=== PATIENT | female | born 1995 | race American Indian/Alaskan Native ===

== ENCOUNTER 2018-07-30 21:05 | Emergency (ER) | payer MEDICAID ==
[2018-07-30] MEDS ORDERED: TYLENOL PO ONE (21:58)
[2018-07-30] MEDS ORDERED: TYLENOL ONE (22:00)
[2018-07-30 22:24] LABS: Bacteria,Urine 2+ /HPF (Negative); Bilirubin,Urine NEG (Negative); Blood,Urine NEG (Negative); Color,Urine Amber (Yellow); Hyaline Casts,Urine 7 /LPF; Mucus,Urine 3+ /HPF
[2018-07-30 22:27] LABS: HCG Qualitative,Urine Negative (Negative)
[2018-07-31] MEDS ORDERED: PYRIDIUM PO ONE (00:42)
[2018-07-31] MEDS ORDERED: BACTRIM DS PO ONE (00:42)
[2018-07-31] MEDS ORDERED: NACL 0.9% 1000 ML 1,000 ML IV ONE (00:45)
[2018-07-31] MEDS ORDERED: ROCEPHIN/NS 1 GM/50 ML 1 GM/50 ML BAG IV ONE (00:45)
[2018-07-31] MEDS ORDERED: NACL 0.9% 1000 ML 1,000 ML ONE (00:48)
[2018-07-31 00:50] VITALS: BP 103/57
[2018-07-31] MEDS ORDERED: XYLOCAINE 1% MPF 5 mL INFILTRATI ONE (00:50)
[2018-07-31] MEDS ORDERED: ROCEPHIN IM ONE ×2 (00:50→00:54)
[2018-07-31] MEDS ORDERED: XYLOCAINE 1% MPF 5 mL ONE (00:54)
--- NOTE | 2018-07-31 01:11 | Emergency Department Report ---
ED Female HPI - General Chief complaint: Abdominal Pain Stated complaint: ABD PAIN Time Seen by Provider: 07/31/18 00:17 Source: patient Mode of arrival: Ambulatory Limitations: No Limitations - History of Present Illness Initial comments: pt is a 23 y/o aaf who presents for superpubic pain dysuria frequency and urgency x 4 days pt denies fever no chills no n/v there is no vaginal discharge no LMP 1 week ago, symptoms are relieved by nothing , symptoms are exacerbated by voiding, as stinging, strong smelling, Complaint: dysuria Onset/Timin -: days(s) Radiation: suprapubic Severity: moderate Severity scale (0 -10): 4 Quality: cramping, other (stinging) Consistency: intermittent Improves with: none Worsens with: urination Are you Now?: No Last Menstrual Period: 07/23/18 EDC: 04/29/19 Associated Symptoms: abdominal pain - Related Data Sexually active: Yes : 1 Para: 1 A: 0 Previous Rx's Medication Instructions Recorded Last Taken Type Ibuprofen 800 mg PO TID PRN #30 tablet 07/31/18 Unknown Rx Phenazopyridine [Pyridium] 100 mg PO TID 2 Days #6 tab 07/31/18 Unknown Rx Sulfamethoxazole/Trimethoprim 1 each PO BID 10 Days #20 tablet 07/31/18 Unknown Rx [Bactrim DS TAB] Allergies Allergy/AdvReac Type Severity Reaction Status Date / Time No Known Allergies Allergy Unverified 07/30/18 21:07 ED Review of Systems ROS: Stated complaint: ABD PAIN Other details as noted in HPI Constitutional: denies: chills, fever Eyes: denies: eye pain, eye discharge, vision change ENT: denies: ear pain, throat pain Respiratory: denies: cough, shortness of breath, wheezing Cardiovascular: denies: chest pain, palpitations Endocrine: no symptoms reported Gastrointestinal: abdominal pain. denies: nausea, vomiting, diarrhea Genitourinary: urgency, dysuria, frequency. denies: hematuria, discharge Musculoskeletal: denies: back pain, joint swelling, arthralgia Skin: denies: rash, lesions Neurological: denies: headache, weakness, paresthesias Psychiatric: denies: anxiety, depression Hematological/Lymphatic: denies: easy bleeding, easy bruising ED Past Medical Hx - Past Medical History Previous Medical History?: No - Surgical History Past Surgical History?: No - Social History Smoking Status: Never Smoker Substance Use Type: None - Medications Home Medications: Home Medications Medication Instructions Recorded Confirmed Last Taken Type Ibuprofen 800 mg PO TID PRN #30 tablet 07/31/18 Unknown Rx Phenazopyridine [Pyridium] 100 mg PO TID 2 Days #6 tab 07/31/18 Unknown Rx Sulfamethoxazole/Trimethoprim 1 each PO BID 10 Days #20 tablet 07/31/18 Unknown Rx [Bactrim DS TAB] ED Physical Exam - General Limitations: No Limitations General appearance: alert, in no apparent distress - Head Head exam: Present: atraumatic, normocephalic - Eye Eye exam: Present: normal appearance - ENT ENT exam: Present: mucous membranes moist - Neck Neck exam: Present: normal inspection - Respiratory Respiratory exam: Present: normal lung sounds bilaterally. Absent: respiratory distress - Cardiovascular Cardiovascular Exam: Present: regular rate, normal rhythm. Absent: systolic murmur, diastolic murmur, rubs, gallop - GI/Abdominal GI/Abdominal exam: Present: soft, normal bowel sounds. Absent: distended, tenderness, guarding, rebound, rigid, bruit, hernia - Rectal Rectal exam: Present: deferred - Extremities Exam Extremities exam: Present: normal inspection, full ROM, normal capillary refill. Absent: tenderness, pedal edema, joint swelling, calf tenderness - Back Exam Back exam: Present: normal inspection, full ROM. Absent: tenderness, CVA tenderness (R), CVA tenderness (L), muscle spasm, rash noted - Neurological Exam Neurological exam: Present: alert, oriented X3, CN II-XII intact, normal gait - Psychiatric Psychiatric exam: Present: normal affect, normal mood - Skin Skin exam: Present: warm, dry, intact, normal color. Absent: rash ED Course Vital Signs 07/31/18 00:49 Temperature 97.6 F Pulse Rate 136 H Respiratory 16 Rate Blood Pressure 103/57 [Left] O2 Sat by Pulse 98 Oximetry ED Medical Decision Making - Lab Data Labs 07/30/18 22:05 Urine Color Verenice Urine Turbidity Cloudy Urine pH 5.0 Ur Specific Wilder 1.030 Urine Protein 100 mg/dl Urine Glucose (UA) 50 Urine Ketones Tr Urine Blood Neg Urine Nitrite Neg Urine Bilirubin Neg Urine Urobilinogen 2.0 Ur Leukocyte Esterase Tr Urine WBC (Auto) 43.0 H Urine RBC (Auto) 16.0 U Epithel Cells (Auto) 7.0 Urine Bacteria (Auto) 2+ Hyaline Casts 7 Urine Mucus 3+ Urine HCG, Qual Negative - Medical Decision Making repeat vital signs, hr noted 136 bpm, bp: 103/57, I have orded IV NS hydration and Rocephin 1gm ivpb, however pt and family member refuses iv and ivfs, advises that she will po hydrates as she has no n/v , and does not feel sick, I have counseled pt on importance to return to ed if symptoms do not improve or worsen, I will tx with rocephin 1gm IM x 1, provide Bactrim DS, pt will sign out AMA, I have discussed risk if signing out AMA , and risk of possible pyelonephritis , including sepsis and , I have answered all questions to her satisfaction, pt is currently A/O x 3 demonstrates decision making capacity pt verbalized agreement and understanding of same. Pt signed out AMA at this time. Critical care attestation.: If time is entered above; I have spent that time in minutes in the direct care of this critically ill patient, excluding procedure time. ED Disposition Clinical Impression: UTI (urinary tract infection) Qualifiers: Urinary tract infection type: acute cystitis Hematuria presence: without hematuria Qualified Code(s): N30.00 - Acute cystitis without hematuria Abdominal pain Qualifiers: Abdominal location: generalized Qualified Code(s): R10.84 - Generalized abdominal pain Disposition: LEFT AGAINST MED ADVICE Is pt being admited?: No Does the pt Need Aspirin: No Condition: Undetermined Instructions: Urinary Tract Infection in Women (ED), Abdominal Pain (ED) Prescriptions: Ibuprofen 800 mg PO TID PRN #30 tablet PRN Reason: pain fever Phenazopyridine [Pyridium] 100 mg PO TID 2 Days #6 tab Sulfamethoxazole/Trimethoprim [Bactrim DS TAB] 1 each PO BID 10 Days #20 tablet Referrals: ALEXANDRIA PAUL MD [Primary Care Provider] - 3-5 Days Forms: AMA Form, Work/School Release Form(ED) Time of Disposition: 01:24
== END 2018-07-31 01:00 | disposition left against medical advice (07) ==
LOC: ED 21:05
DX: N39.0 Urinary tract infection, site not specified (principal)
CPT/HCPCS: 81001; 81025; 96372; 99283; J0696; J7030

== ENCOUNTER 2018-08-01 15:57 | Inpatient (IN) | payer MEDICAID ==
--- NOTE | 2018-08-01 16:07 | Emergency Department Report ---
Blank Doc - Documentation Documentation: This is a 23-year-old female that presents with right upper abdominal pain with nausea and vomiting. Patient denies any other complaints or symptoms. This initial assessment diagnostic orders/clinical plan/treatment(s) is/are subject to change based on patient's health status, clinical progression and re- assessment by fellow clinical providers in the ED. Further treatment and workup at subsequent clinical providers discretion. Patient/guardians urged not to elope from ED s their condition may be serious if not clinically assessed and managed. Initial orders include: 1-Patient sent to [facility] for further evaluation and treatment 2- UA 3- Labs
[2018-08-01 17:05] LABS: Hematocrit 42.4 % (30.3-42.9); Hemoglobin 14.6 gm/dl (10.1-14.3); Mean Corpuscular HGB Conc 35 % (30-34); Mean Corpuscular Volume 89 fl (79-97); Platelet Count 160 K/mm3 (140-440); Red Blood Count 4.78 M/mm3 (3.65-5.03); Red Cell Distribution Width 13.2 % (13.2-15.2)
--- NOTE | 2018-08-01 17:19 | Emergency Department Report ---
ED Abdominal Pain HPI - General Chief Complaint: Nausea/Vomiting/Diarrhea Stated Complaint: ABD PAIN ON (R) SIDE Time Seen by Provider: 08/01/18 16:02 Source: patient, family Mode of arrival: Ambulatory Limitations: No Limitations - History of Present Illness Initial Comments: This is a 23-year-old female here with her family reports patient was here and Thursday and diagnosed a UTI and she is on antibiotic and she is still having nausea and vomiting and and have been eaten anything since Thursday and she threw up 4-7 times today. Denies any blood in her vomit. Denies any fever or reports chills and weakness. [id number] reported the patient with learning disability and she is bipolar so he have to speak to her as a simple level for her to understand. She denies any fever but reports chills and her abdominal pain is located to right abdomen and periumbilical area. She had a BM this morning in her significant other. Pain is 10/10 to a abdomen and feels sharp and cramping. MD Complaint: abdominal pain, other (nausea and vomiting) Onset/Timin -: days(s) Location: periumbilical Radiation: none Migration to: RLQ Severity: severe Severity scale (0 -10): 10 Quality: cramping, sharp Consistency: constant Improves With: nothing Worsens With: vomiting Context: recent antibiotic use, other (diagnosis 2 days ago for UTI) Associated Symptoms: nausea, vomiting, chills, anorexia. denies: diarrhea, fever, constipation, dysuria, hematemesis, hematochezia, melena, hematuria, syncope Treatments Prior to Arrival: other (antibiotic, ibuprofen and Pyridium) - Related Data LMP Date: 07/24/18 Previous Rx's Medication Instructions Recorded Last Taken Type Ibuprofen 800 mg PO TID PRN #30 tablet 07/31/18 Unknown Rx Phenazopyridine [Pyridium] 100 mg PO TID 2 Days #6 tab 07/31/18 Unknown Rx Sulfamethoxazole/Trimethoprim 1 each PO BID 10 Days #20 tablet 07/31/18 Unknown Rx [Bactrim DS TAB] Allergies Allergy/AdvReac Type Severity Reaction Status Date / Time No Known Allergies Allergy Unverified 07/30/18 21:07 ED Review of Systems ROS: Stated complaint: ABD PAIN ON (R) SIDE Other details as noted in HPI Constitutional: chills, weakness. denies: fever ENT: denies: throat pain, congestion Respiratory: denies: cough, shortness of breath, wheezing Cardiovascular: denies: chest pain, palpitations, edema, syncope Gastrointestinal: abdominal pain, nausea, vomiting. denies: diarrhea, constipation, hematemesis, hematochezia Genitourinary: denies: urgency, dysuria, frequency, hematuria, discharge, abnormal menses Musculoskeletal: denies: back pain, joint swelling, arthralgia, myalgia Skin: denies: rash Neurological: denies: headache, numbness, paresthesias, abnormal gait, vertigo ED Past Medical Hx - Past Medical History Previous Medical History?: Yes Hx Psychiatric Treatment: Yes (bipolar and learning disorder) - Surgical History Past Surgical History?: No - Family History Family history: no significant - Social History Smoking Status: Never Smoker Substance Use Type: None - Medications Home Medications: Home Medications Medication Instructions Recorded Confirmed Last Taken Type Ibuprofen 800 mg PO TID PRN #30 tablet 07/31/18 Unknown Rx Phenazopyridine [Pyridium] 100 mg PO TID 2 Days #6 tab 07/31/18 Unknown Rx Sulfamethoxazole/Trimethoprim 1 each PO BID 10 Days #20 tablet 07/31/18 Unknown Rx [Bactrim DS TAB] ED Physical Exam - General Limitations: No Limitations General appearance: alert, in no apparent distress - Head Head exam: Present: atraumatic, normocephalic, normal inspection - Eye Eye exam: Present: normal appearance, PERRL, EOMI Pupils: Present: normal accommodation - ENT ENT exam: Present: normal orophraynx, mucous membranes dry, TM's normal bilaterally, normal external ear exam - Neck Neck exam: Present: normal inspection, full ROM. Absent: tenderness, lymphadenopathy - Respiratory Respiratory exam: Present: normal lung sounds bilaterally. Absent: respiratory distress, chest wall tenderness - Cardiovascular Cardiovascular Exam: Present: normal rhythm, tachycardia, normal heart sounds - GI/Abdominal GI/Abdominal exam: Present: soft, tenderness (right umbilical area and also right lower quadrant), guarding, normal bowel sounds. Absent: distended, rebound, rigid, organomegaly, mass, bruit, pulsatile mass, hernia - Extremities Exam Extremities exam: Present: normal inspection, full ROM, normal capillary refill, other (No cce. + 2 pulses in all extremities, no neurovascular compromise). Absent: tenderness, pedal edema, joint swelling, calf tenderness - Back Exam Back exam: Present: normal inspection, full ROM, other (ambulates in the difficulties). Absent: tenderness, CVA tenderness (R), CVA tenderness (L), muscle spasm, paraspinal tenderness, vertebral tenderness, rash noted - Neurological Exam Neurological exam: Present: alert, oriented X3, normal gait - Psychiatric Psychiatric exam: Present: normal affect, normal mood - Skin Skin exam: Present: warm, dry, intact, normal color. Absent: rash ED Course Vital Signs 08/01/18 08/01/18 08/01/18 16:04 19:40 20:34 Temperature 98.1 F Pulse Rate 110 H 93 H Respiratory 16 15 18 Rate Blood Pressure 104/65 Blood Pressure 107/62 [Right] O2 Sat by Pulse 96 100 Oximetry - Reevaluation(s) Reevaluation #1: 08/01/18 19:52 Patient here for nausea vomiting and abdominal pain to her right abdomen. Abdominal exam with tenderness to palpate McBurney's point. CT scan of the abdomen and pelvis with IV contrast ordered, her vital signs are stable and she is to start on IV fluid and antiemetic with IV pain medication. Patient moved to the treatment room. Reevaluation #2: 08/01/18 18:41 Reevaluation #3: 08/01/18 19:30 Patient with abnormal labs. She was started on a second liter of IV fluid. She says she is feeling better and she is able to tolerate liquids. She is in acute renal failure. I will discuss this with attending physician. Reevaluation #4: 08/01/18 19:49 Radiology call to inform the patient with appendicitis. I spoke with Dr. Manuel who is the surgeon on-call. She wants patient to be nothing by mouth which she is already nothing by mouth and to admit to hospital inpatient, patient to receive Zosyn every 6 hours that is renally dosed and I spoke with pharmacist in regards to this and they said they will renally dose her antibiotic. She is also to start an normal saline at 125 mL an hour. This was discussed with patient and family and they voiced understanding. 08/01/18 19:52 Reevaluation #5: 08/01/18 20:51 Dr. Swartz hospitalist saw and admitted patient - Consultations Consultation #1: 08/01/18 19:51 Dr. Manuel surgery notified and wants patient to be admitted. ED Medical Decision Making - Lab Data Result diagrams: 08/01/18 16:19 08/01/18 16:19 Lab Results 08/01/18 08/01/18 08/01/18 Range/Units 16:19 16:19 16:31 WBC 13.2 H (4.5-11.0) K/mm3 RBC 4.78 (3.65-5.03) M/mm3 Hgb 14.6 H (10.1-14.3) gm/dl Hct 42.4 (30.3-42.9) % MCV 89 (79-97) fl MCH 31 (28-32) pg MCHC 35 H (30-34) % RDW 13.2 (13.2-15.2) % Plt Count 160 (140-440) K/mm3 Add Manual Diff Complete Total Counted 100 Seg Neutrophils % Health Manager Seg Neuts % (Manual) 90.0 H (40.0-70.0) % Band Neutrophils % 2.0 % Lymphocytes % (Manual) 4.0 L (13.4-35.0) % Reactive Lymphs % (Man) 0 % Monocytes % (Manual) 4.0 (0.0-7.3) % Eosinophils % (Manual) 0 (0.0-4.3) % Basophils % (Manual) 0 (0.0-1.8) % Metamyelocytes % 0 % Myelocytes % 0 % Promyelocytes % 0 % Blast Cells % 0 % Nucleated RBC % Not Reportable Seg Neutrophils # Man 11.9 H (1.8-7.7) K/mm3 Band Neutrophils # 0.3 K/mm3 Lymphocytes # (Manual) 0.5 L (1.2-5.4) K/mm3 Abs React Lymphs (Man) 0.0 K/mm3 Monocytes # (Manual) 0.5 (0.0-0.8) K/mm3 Eosinophils # (Manual) 0.0 (0.0-0.4) K/mm3 Basophils # (Manual) 0.0 (0.0-0.1) K/mm3 Metamyelocytes # 0.0 K/mm3 Myelocytes # 0.0 K/mm3 Promyelocytes # 0.0 K/mm3 Blast Cells # 0.0 K/mm3 WBC Morphology Not Reportable Hypersegmented Neuts Not Reportable Hyposegmented Neuts Not Reportable Hypogranular Neuts Not Reportable Smudge Cells Not Reportable Toxic Granulation Not Reportable Toxic Vacuolation Not Reportable Dohle Bodies Not Reportable Pelger-Huet Anomaly Not Reportable Cathy Rods Not Reportable Platelet Estimate Consistent w auto Clumped Platelets Not Reportable Plt Clumps, EDTA Not Reportable Large Platelets Few Giant Platelets Not Reportable Platelet Satelliting Not Reportable Plt Morphology Comment Not Reportable RBC Morphology Not Reportable Dimorphic RBCs Not Reportable Polychromasia Not Reportable Hypochromasia Not Reportable Poikilocytosis Not Reportable Anisocytosis 1+ Microcytosis 1+ Macrocytosis Not Reportable Spherocytes Not Reportable Pappenheimer Bodies Not Reportable Sickle Cells Not Reportable Target Cells Not Reportable Tear Drop Cells Not Reportable Ovalocytes Few Helmet Cells Not Reportable Stauffer-[place] Bodies Not Reportable Conshohocken Rings Not Reportable Delfino Cells Not Reportable Bite Cells Not Reportable Crenated Cell Not Reportable Elliptocytes Rare Acanthocytes (Spur) Not Reportable Rouleaux Not Reportable Hemoglobin C Crystals Not Reportable Schistocytes Not Reportable Malaria parasites Not Reportable Tanner Bodies Not Reportable Hem Pathologist Commnt No Sodium 130 L (137-145) mmol/L Potassium 2.9 L* (3.6-5.0) mmol/L Chloride 85.9 L (98-107) mmol/L Carbon Dioxide 25 (22-30) mmol/L Anion Gap 22 mmol/L BUN 29 H (7-17) mg/dL Creatinine 1.5 H (0.7-1.2) mg/dL Estimated GFR 53 ml/min BUN/Creatinine Ratio 19 % Glucose 103 H (65-100) mg/dL Calcium 9.0 (8.4-10.2) mg/dL Magnesium (1.7-2.3) mg/dL Total Bilirubin 0.60 (0.1-1.2) mg/dL AST 21 (5-40) units/L ALT 10 (7-56) units/L Alkaline Phosphatase 113 (35-129) units/L Total Protein 8.4 H (6.3-8.2) g/dL Albumin 3.5 L (3.9-5) g/dL Albumin/Globulin Ratio 0.7 % Lipase 10 L (13-60) units/L Urine Color Red (Yellow) Urine Turbidity Slightly-cloudy (Clear) Urine pH 5.0 (5.0-7.0) Ur Specific [place] 1.025 (1.003-1.030) Urine Protein >500 (Negative) mg/dL Urine Glucose (UA) 50 (Negative) mg/dL Urine Ketones Neg (Negative) mg/dL Urine Blood Neg (Negative) Urine Nitrite Pos (Negative) Urine Bilirubin Neg (Negative) Urine Urobilinogen 4.0 (<2.0) mg/dL Ur Leukocyte Esterase Neg (Negative) Urine WBC (Auto) 18.0 H (0.0-6.0) /HPF Urine RBC (Auto) 7.0 (0.0-6.0) /HPF U Epithel Cells (Auto) 30.0 H (0-13.0) /HPF Urine Bacteria (Auto) 1+ (Negative) /HPF Urine WBC Clumps 2+ /HPF Urine Mucus 1+ /HPF Urine Yeast (Budding) 1+ /HPF Urine Sperm 1+ (RELAY MAN) /HPF Urine HCG, Qual Negative (Negative) 08/01/18 Range/Units 19:48 WBC (4.5-11.0) K/mm3 RBC (3.65-5.03) M/mm3 Hgb (10.1-14.3) gm/dl Hct (30.3-42.9) % MCV (79-97) fl MCH (28-32) pg MCHC (30-34) % RDW (13.2-15.2) % Plt Count (140-440) K/mm3 Add Manual Diff Total Counted Seg Neutrophils % Seg Neuts % (Manual) (40.0-70.0) % Band Neutrophils % % Lymphocytes % (Manual) (13.4-35.0) % Reactive Lymphs % (Man) % Monocytes % (Manual) (0.0-7.3) % Eosinophils % (Manual) (0.0-4.3) % Basophils % (Manual) (0.0-1.8) % Metamyelocytes % % Myelocytes % % Promyelocytes % % Blast Cells % % Nucleated RBC % Seg Neutrophils # Man (1.8-7.7) K/mm3 Band Neutrophils # K/mm3 Lymphocytes # (Manual) (1.2-5.4) K/mm3 Abs React Lymphs (Man) K/mm3 Monocytes # (Manual) (0.0-0.8) K/mm3 Eosinophils # (Manual) (0.0-0.4) K/mm3 Basophils # (Manual) (0.0-0.1) K/mm3 Metamyelocytes # K/mm3 Myelocytes # K/mm3 Promyelocytes # K/mm3 Blast Cells # K/mm3 WBC Morphology Hypersegmented Neuts Hyposegmented Neuts Hypogranular Neuts Smudge Cells Toxic Granulation Toxic Vacuolation Dohle Bodies Pelger-Huet Anomaly Cathy Rods Platelet Estimate Clumped Platelets Plt Clumps, EDTA Large Platelets Giant Platelets Platelet Satelliting Plt Morphology Comment RBC Morphology Dimorphic RBCs Polychromasia Hypochromasia Poikilocytosis Anisocytosis Microcytosis Macrocytosis Spherocytes Pappenheimer Bodies Sickle Cells Target Cells Tear Drop Cells Ovalocytes Helmet Cells Stauffer-[place] Bodies Conshohocken Rings Delfino Cells Bite Cells Crenated Cell Elliptocytes Acanthocytes (Spur) Rouleaux Hemoglobin C Crystals Schistocytes Malaria parasites Tanner Bodies Hem Pathologist Commnt Sodium (137-145) mmol/L Potassium (3.6-5.0) mmol/L Chloride (98-107) mmol/L Carbon Dioxide (22-30) mmol/L Anion Gap mmol/L BUN (7-17) mg/dL Creatinine (0.7-1.2) mg/dL Estimated GFR ml/min BUN/Creatinine Ratio % Glucose (65-100) mg/dL Calcium (8.4-10.2) mg/dL Magnesium 2.00 (1.7-2.3) mg/dL Total Bilirubin (0.1-1.2) mg/dL AST (5-40) units/L ALT (7-56) units/L Alkaline Phosphatase (35-129) units/L Total Protein (6.3-8.2) g/dL Albumin (3.9-5) g/dL Albumin/Globulin Ratio % Lipase (13-60) units/L Urine Color (Yellow) Urine Turbidity (Clear) Urine pH (5.0-7.0) Ur Specific [place] (1.003-1.030) Urine Protein (Negative) mg/dL Urine Glucose (UA) (Negative) mg/dL Urine Ketones (Negative) mg/dL Urine Blood (Negative) Urine Nitrite (Negative) Urine Bilirubin (Negative) Urine Urobilinogen (<2.0) mg/dL Ur Leukocyte Esterase (Negative) Urine WBC (Auto) (0.0-6.0) /HPF Urine RBC (Auto) (0.0-6.0) /HPF U Epithel Cells (Auto) (0-13.0) /HPF Urine Bacteria (Auto) (Negative) /HPF Urine WBC Clumps /HPF Urine Mucus /HPF Urine Yeast (Budding) /HPF Urine Sperm (RELAY MAN) /HPF Urine HCG, Qual (Negative) - Radiology Data Radiology results: report reviewed CT scan of the abdomen and pelvis with IV contrast dictated by radiologist and reported reviewed by myself. Please see below for details. Findings [facility] [address] [place] [address] Cat Scan Report Signed Patient: LEE ANN VIGIL MR#: [id number] : 1995 Acct:[id number] Age/Sex: 23 / F ADM Date: 08/01/18 Loc: ED Attending Dr: Ordering Physician: LEAH LOWERY Date of Service: 08/01/18 Procedure(s): CT abdomen pelvis w con Accession Number(s): [id number] cc: LEAH LOWERY FINAL REPORT PROCEDURE: CT abdomen and pelvis with contrast. TECHNIQUE: Computerized axial tomography of the abdomen and pelvis was performed after the IV injection of iodinated nonionic contrast. HISTORY: Abdominal pain, nausea and vomiting. COMPARISON: No prior studies are available for comparison. FINDINGS: The lung bases are clear. There are no pleural effusions. The heart size is normal. The liver, pancreas and spleen appear normal. The gallbladder is present. There is no biliary dilatation. The adrenal glands are not enlarged. Both kidneys appear normal in size and configuration. The abdominal aorta has a normal caliber. There is no retroperitoneal adenopathy. The appendix is dilated measuring up to 12.0 millimeters in diameter. There is some fluid and air within the appendix. There is an appendicolith at the base of the appendix measuring 9.8 millimeters in diameter. There is mild dilatation of a few loops of small bowel. I see no definite signs of intestinal obstruction. The possibility of a mild ileus should be considered. The bladder, uterus and adn exal regions appear normal. The regional skeleton appears intact. IMPRESSION: Acute appendicitis with appendicolith at the base of the appendix. Mild nonspecific dilatation of some small bowel loops. Transcribed By: AWA Dictated By: MAT CHAU MD Electronically Authenticated By: MAT CHAU MD Signed Date/Time: 08/01/181932 DD/ 31 TD/TT: 08/01/181931 - Medical Decision Making This is a 23-year-old female who is back in the hospital after 2 days and she was treated for urinary tract infection and given Bactrim, Pyridium and ibuprofen that she up and discharged 2 days ago. Patient is not complaining nausea and vomiting in and right abdominal pain. CBC with minor elevation in white count and bacteriuria shifted to the left, CMP with electrolyte imbalance to include decreased sodium, and potassium of 2.9 and she is in renal insufficiency. Magnesium is stable. Urinalysis still shows bacterial infection but specimen is contaminated and she has positive nitrite. Patient had CT scan of the abdomen and pelvis which shows she has appendicitis per radiologist. Patient was given 2 L of normal saline and started on normal saline at 1 25 mL an hour prior to findings of appendicitis she was given Rocephin 1 g IV and emergency room. I spoke with my attending Dr. Pacheco and I also spoke with Dr. Manuel who is the surgeon. Patient is nothing by mouth and to start on Zosyn renal dose. I spoke with the pharmacy and they said when they get order they will renal dose her Zosyn. Patient and family updated on decision to admit for appendicitis and that she will be having surgery tomorrow. She is okay with nadiya ortega and so his family. Patient was also given Zofran 8 mg IV and morphine 4 mg IV and her pain and nausea is controlled. Blood cultures 2 drawn and sent. She is aware that she has to be nothing by mouth after midnight. Patient is in agreement. Dr. Swartz who is a hospitalist saw patient and admitted patient's to inpatient status. Patient is stable, vital signs stable and she is a febrile and in no acute distress at present. - Differential Diagnosis appendicitis, colitis, pancreatitis, GBD, pyelo/UTI, pelvic abnormality Critical care attestation.: If time is entered above; I have spent that time in minutes in the direct care of this critically ill patient, excluding procedure time. ED Disposition Clinical Impression: Dehydration, Acute renal insufficiency, Electrolyte imbalance, Acute cystitis without hematuria Appendicitis Qualifiers: Appendicitis type: acute appendicitis Acute appendicitis type: unspecified acute appendicitis type Qualified Code(s): K35.80 - Unspecified acute a ppendicitis Nausea & vomiting Qualifiers: Vomiting type: bilious vomiting Qualified Code(s): R11.14 - Bilious vomiting Disposition: DC-09 OP ADMIT IP TO THIS HOSP Is pt being admited?: Yes Does the pt Need Aspirin: No Condition: Stable Referrals: ALEXANDRIA PAUL MD [Primary Care Provider] - 3-5 Days Time of Disposition: 20:59
[2018-08-01] MEDS ORDERED: ZOFRAN IV ONE (17:20)
[2018-08-01] MEDS ORDERED: MORPHINE IV ONE (17:20)
[2018-08-01] MEDS ORDERED: BENADRYL IV ONE (17:20)
[2018-08-01] MEDS ORDERED: NACL 0.9% 1000 ML 1,000 ML IV ONE ×2 (17:20→18:44)
[2018-08-01 17:37] LABS: Albumin 3.5 g/dL (3.9-5)
[2018-08-01 17:39] LABS: Bacteria,Urine 1+ /HPF (Negative); Bilirubin,Urine NEG (Negative); Blood,Urine NEG (Negative); Color,Urine Red (Yellow); HCG Qualitative,Urine Negative (Negative); Mucus,Urine 1+ /HPF; Sperm,Urine 1+ /HPF (NP)
[2018-08-01 17:40] LABS: Protein,Urine >500 mg/dL (Negative)
[2018-08-01 17:43] LABS: Anisocytosis 1+; Band Neutrophils # (Manual) 0.3 K/mm3; Basophils % (Manual) 0 % (0.0-1.8); Eosinophils % (Manual) 0 % (0.0-4.3); Ovalocytes Few; Total Cells Counted 100
[2018-08-01 17:44] LABS: Large Platelets Few; Platelet Estimate Consistent w Auto
[2018-08-01] MEDS ORDERED: K-DUR PO ONE (18:40)
[2018-08-01] MEDS ORDERED: ROCEPHIN/NS 1 GM/50 ML 1 GM/50 ML BAG IV ONE (18:57)
--- NOTE | 2018-08-01 19:33 | Cat Scan Report ---
FINAL REPORT PROCEDURE: CT abdomen and pelvis with contrast. TECHNIQUE: Computerized axial tomography of the abdomen and pelvis was performed after the IV inject ion of iodinated nonionic contrast. HISTORY: Abdominal pain, nausea and vomiting. COMPARISON: No prior studies are available for comparison. FINDINGS: The lung bases are clear. There are no pleural effusions. The heart size is normal. The liver, pancre as and spleen appear normal. The gallbladder is present. There is no biliary dilatation. The adrenal glands are not enlarged. Both kidneys appear normal in size and configuration. The abdominal aorta goldstein s a normal caliber. There is no retroperitoneal adenopathy. The appendix is dilated measuring up to 1 2.0 millimeters in diameter. There is some fluid and air within the appendix. There is an appendicoli th at the base of the appendix measuring 9.8 millimeters in diameter. There is mild dilatation of a f ew loops of small bowel. I see no definite signs of intestinal obstruction. The possibility of a mild ileus should be considered. The bladder, uterus and adnexal regions appear normal. The regional skel eton appears intact. IMPRESSION: Acute appendicitis with appendicolith at the base of the appendix. Mild nonspecific dilatation of isra e small bowel loops.
[2018-08-01] MEDS ORDERED: TYLENOL PO PRN (20:12)
[2018-08-01] MEDS ORDERED: NACL 0.9% 1000 ML IV ONE (20:12)
[2018-08-01] MEDS ORDERED: ZOFRAN IV PRN (20:12)
[2018-08-01] MEDS ORDERED: SODIUM CHLORIDE FLUSH SYRINGE 10 ML IV PRN (20:12)
[2018-08-01] MEDS ORDERED: NORVASC PO ONE (20:19)
[2018-08-01] MEDS ORDERED: HCTZ PO ONE (20:19)
--- NOTE | 2018-08-01 20:23 | History and Physical Report ---
History of Present Illness Chief complaint: My stomach hurts History of present illness: 23 YO Female with Developmental Delay, Bipolar presents to ED for evaluation. Pt states that she has experienced abdominal pain, nausea, multiple episodes ov vomiting, and loose stools over the past 3 days with persistent symptoms over the same time frame. Pt states that her pain is 10/10, localized to the RLQ, worsened with movement, relieved with nonmovement. Pt is unable to ambulate without pain. Pt acknowledges flatus and bowel movement, but denies BRBPR, fever, chills, CP, Palpitations, skin rash, ingestion of food/water from new or different sources. Pt transported to [facility] for further care and evaluation. Pt seen and evaluated in ED and found to have Sepsis, Acute Appendicitis and ARF. Surgery team consulted in ED. Pt initiated on sepsis protocol. Pt admitted to med-surgical floor. Pt family at bedside. Discussed plan of care with family. Pt family acknowledges understanding and approval of care plan. Past History Past Medical History: other (Bipolar, Developmental delay) Past Surgical History: No surgical history, Other (reviewed) Social history: single, lives with family. denies: smoking, alcohol abuse, prescription drug abuse Family history: no significant family history (reviewed) Medications and Allergies Allergies Allergy/AdvReac Type Severity Reaction Status Date / Time No Known Allergies Allergy Unverified 07/30/18 21:07 Home Medications Medication Instructions Recorded Confirmed Last Taken Type Ibuprofen 800 mg PO TID PRN #30 tablet 07/31/18 Unknown Rx Phenazopyridine [Pyridium] 100 mg PO TID 2 Days #6 tab 07/31/18 Unknown Rx Sulfamethoxazole/Trimethoprim 1 each PO BID 10 Days #20 tablet 07/31/18 Unknown Rx [Bactrim DS TAB] Active Meds: Active Medications Acetaminophen (Tylenol) 650 mg PO Q4H PRN PRN Reason: Pain MILD(1-3)/Fever >100.5/THACKER Sodium Chloride (Nacl 0.9% 1000 Ml) 1,000 mls @ 125 mls/hr IV DIRECT NIRMAL Piperacillin Sod/Tazobactam Sod (Zosyn/Ns 3.375gm/50ml) 3.375 gm in 50 mls @ 100 mls/hr IV Q6H NIRMAL; Protocol Levofloxacin/Dextrose (Levaquin 750mg/150ml) 750 mg in 150 mls @ 100 mls/hr IV Q24HR NIRMAL; Protocol Metronidazole (Flagyl 500 Mg/100 Ml) 500 mg in 100 mls @ 100 mls/hr IV Q8HR NIRMAL; Protocol Morphine Sulfate (Morphine) 2 mg IV Q4H PRN PRN Reason: Pain, Moderate (4-6) Ondansetron HCl (Zofran) 4 mg IV Q8H PRN PRN Reason: Nausea And Vomiting Sodium Chloride (Nacl 0.9% 1000 Ml) 1,730 ml 30 ml/kg (1730 ml) IV ONCE ONE Stop: 08/01/18 20:13 Sodium Chloride (Sodium Chloride Flush Syringe 10 Ml) 10 ml IV BID NIRMAL Sodium Chloride (Sodium Chloride Flush Syringe 10 Ml) 10 ml IV PRN PRN PRN Reason: LINE FLUSH Review of Systems Constitutional: no weight loss, no weight gain, no fever Ears, nose, mouth and throat: no ear pain, no ear discharge, no tinnitis Breasts: no change in shape, no swelling, no mass Cardiovascular: no chest pain, no palpitations, no rapid/irregular heart beat, no edema Respiratory: no cough, no excessive sputum, no shortness of breath Gastrointestinal: abdominal pain, nausea, vomiting, diarrhea, no hematemesis, no BRBPR, no melena, no hematochezia Genitourinary Female: no pelvic pain, no flank pain, no urinary frequency, no stress incontinence Rectal: no pain, no incontinence, no itching Musculoskeletal: no neck stiffness, no shooting arm pain, no low back pain, no leg numbness/tingling Integumentary: no rash, no redness, no wounds Neurological: no paralysis, no parathesias, no tingling, no syncope Psychiatric: no anxiety, no change in sleep habits, no insomnia, no change in appetite Endocrine: no cold intolerance, no heat intolerance, no polyphagia, no polydipsia Hematologic/Lymphatic: no easy bruising, no easy bleeding Allergic/Immunologic: no urticaria, no wheezing Exam - Constitutional Vitals: Temp Pulse Resp BP Pulse Ox 98.1 F 110 H 15 104/65 96 08/01/18 16:04 08/01/18 16:04 08/01/18 19:40 08/01/18 16:04 08/01/18 16:04 General appearance: Present: mild distress - EENT Eyes: Present: PERRL ENT: hearing intact, clear oral mucosa - Neck Neck: Present: supple, normal ROM - Respiratory Respiratory effort: normal Respiratory: bilateral: CTA - Cardiovascular Heart Sounds: Present: S1 & S2. Absent: rub, click - Extremities Extremities: pulses symmetrical, No edema Peripheral Pulses: within normal limits - Abdominal General gastrointestinal: Present: soft, tender, non-distended, normal bowel sounds Localized gastrointestinal: tender: RLQ Female genitourinary: Present: normal - Integumentary Integumentary: Present: clear, warm, dry - Musculoskeletal Musculoskeletal: gait normal, strength equal bilaterally - Psychiatric Psychiatric: appropriate mood/affect, intact judgment & insight - Neurologic Neurologic: CNII-XII intact, moves all extremities Results - Labs CBC & Chem 7: 08/02/18 07:07 08/02/18 07:07 Labs: Abnormal lab results 08/01/18 08/01/18 08/01/18 Range/Units 16:19 16:19 16:31 WBC 13.2 H (4.5-11.0) K/mm3 Hgb 14.6 H (10.1-14.3) gm/dl MCHC 35 H (30-34) % Seg Neuts % (Manual) 90.0 H (40.0-70.0) % Lymphocytes % (Manual) 4.0 L (13.4-35.0) % Seg Neutrophils # Man 11.9 H (1.8-7.7) K/mm3 Lymphocytes # (Manual) 0.5 L (1.2-5.4) K/mm3 Sodium 130 L (137-145) mmol/L Potassium 2.9 L* (3.6-5.0) mmol/L Chloride 85.9 L (98-107) mmol/L BUN 29 H (7-17) mg/dL Creatinine 1.5 H (0.7-1.2) mg/dL Glucose 103 H (65-100) mg/dL Total Protein 8.4 H (6.3-8.2) g/dL Albumin 3.5 L (3.9-5) g/dL Lipase 10 L (13-60) units/L Urine WBC (Auto) 18.0 H (0.0-6.0) /HPF U Epithel Cells (Auto) 30.0 H (0-13.0) /HPF Assessment and Plan - Patient Problems (1) Sepsis Current Visit: Yes Status: Acute Qualifiers: Sepsis type: sepsis due to unspecified organism Qualified Code(s): A41.9 - Sepsis, unspecified organism Plan to address problem: Sepsis protocol: IV antibiotic therapy, monitor uop q shift, IVF resuscitation t herapy, CBC, CMP, urinalysis, serial lactic acid level, chest x ray, (2) ARF (acute renal failure) with tubular necrosis Current Visit: Yes Status: Acute Plan to address problem: IVF resuscitation therapy, monitor uop q shift, repeat bmp to monitor for change in serum creatnine, avoid nephrotoxic agents. (3) Appendicitis Current Visit: Yes Status: Acute Qualifiers: Appendicitis type: acute appendicitis Acute appendicitis type: unspecified acute appendicitis type Qualified Code(s): K35.80 - Unspecified acute appendicitis Plan to address problem: IV antibiotic therapy, surgery consulted in ED. Appendectomy as per surgical team. (4) DVT prophylaxis Current Visit: Yes Status: Acute Plan to address problem: SCD to BLE while in bed
[2018-08-01] MEDS: NACL 0.9% 1000 ML 1,000 ML IV SCH (22:27)
[2018-08-01] MEDS: ZOSYN/NS 3.375GM/50ML 3.375 GM/50 ML BAG IV SCH (22:28)
[2018-08-01] MEDS: MORPHINE IV PRN (22:47)
[2018-08-01] MEDS: SODIUM CHLORIDE FLUSH SYRINGE 10 ML IV SCH (22:49)
[2018-08-01] MEDS: FLAGYL 500 MG/100 ML 500 MG/100 ML BAG IV SCH (23:55)
[2018-08-02] MEDS: MORPHINE IV PRN ×2 (02:18→21:07)
[2018-08-02] MEDS: ZOSYN/NS 3.375GM/50ML 3.375 GM/50 ML BAG IV SCH ×2 (03:10→21:25)
[2018-08-02] MEDS: FLAGYL 500 MG/100 ML 500 MG/100 ML BAG IV SCH ×2 (05:06→21:16)
[2018-08-02] MEDS: ZOFRAN IV PRN ×3 (07:00→21:16)
[2018-08-02 07:20] LABS: Mean Corpuscular HGB Conc 37 % (30-34); Mean Corpuscular Volume 86 fl (79-97); Platelet Count 120 K/mm3 (140-440); Red Blood Count 3.94 M/mm3 (3.65-5.03); Red Cell Distribution Width 13.3 % (13.2-15.2)
[2018-08-02 07:23] LABS: Hemoglobin 12.4 gm/dl (10.1-14.3)
[2018-08-02 07:42] LABS: BUN/Creatinine Ratio 19; Blood Urea Nitrogen 15 mg/dL (7-17); Calcium 8.4 mg/dL (8.4-10.2); Hemolysis Index 18
[2018-08-02] MEDS: KCL 10MEQ/100ML 10 MEQ/100 ML BAG IV SCH (09:25)
[2018-08-02 09:43] LABS: Basophils % (Manual) 0 % (0.0-1.8); Eosinophils % (Manual) 0 % (0.0-4.3); Total Cells Counted 100
[2018-08-02 09:44] LABS: Anisocytosis 1+; Ovalocytes Rare; Platelet Estimate Consistent w Auto
--- NOTE | 2018-08-02 10:12 | Consultation ---
History of Present Illness Consult date: 08/02/18 Reason for consult: abdominal pain Chief complaint: abdominal pain - History of present illness History of present illness: 23 yo F with no PMHx presents to ER with c/o abdominal pain localized to the RLQ , nonradiating, 5/10 in severity, sharp in nature. The pain started 2-3 days ago. She presented to the ER at that time and was diagnosed with a UTI and discharged with antibiotics. She returned last night to ER due to worsening pain. She states she has had several episodes of emesis. No f/c. No c/d. Denies burning or pain with urination. She has had abdominal pain in the past which was associated with menstruation. This pain is different. Past History Past Medical History: other (Bipolar, Developmental delay) Past Surgical History: No surgical history, Other (reviewed) Social history: single, lives with family. denies: smoking, alcohol abuse, prescription drug abuse Family history: no significant family history (reviewed) Medications and Allergies Allergies Allergy/AdvReac Type Severity Reaction Status Date / Time No Known Allergies Allergy Unverified 07/30/18 21:07 Home Medications Medication Instructions Recorded Confirmed Last Taken Type Ibuprofen 800 mg PO TID PRN #30 tablet 07/31/18 Unknown Rx Phenazopyridine [Pyridium] 100 mg PO TID 2 Days #6 tab 07/31/18 Unknown Rx Sulfamethoxazole/Trimethoprim 1 each PO BID 10 Days #20 tablet 07/31/18 Unknown Rx [Bactrim DS TAB] Active Meds: Active Medications Acetaminophen (Tylenol) 650 mg PO Q4H PRN PRN Reason: Pain MILD(1-3)/Fever >100.5/THACKER Sodium Chloride (Nacl 0.9% 1000 Ml) 1,000 mls @ 125 mls/hr IV DIRECT NIRMAL Last Admin: 08/01/18 22:27 Dose: 125 mls/hr Documented by: Piperacillin Sod/Tazobactam Sod (Zosyn/Ns 3.375gm/50ml) 3.375 gm in 50 mls @ 100 mls/hr IV Q6H NIRMAL; Protocol Last Admin: 08/02/18 03:10 Dose: 100 mls/hr Documented by: Levofloxacin/Dextrose (Levaquin 750mg/150ml) 750 mg in 150 mls @ 100 mls/hr IV Q24HR NIRMAL; Protocol Metronidazole (Flagyl 500 Mg/100 Ml) 500 mg in 100 mls @ 100 mls/hr IV Q8HR NIRMAL; Protocol Last Admin: 08/02/18 05:06 Dose: 100 mls/hr Documented by: Potassium Chloride (Kcl 10meq/100ml) 10 meq in 100 mls @ 100 mls/hr IV Q1H NIRMAL Stop: 08/02/18 12:59 Last Admin: 08/02/18 09:25 Dose: 100 mls/hr Documented by: Morphine Sulfate (Morphine) 2 mg IV Q4H PRN PRN Reason: Pain, Moderate (4-6) Last Admin: 08/02/18 02:18 Dose: 2 mg Documented by: Ondansetron HCl (Zofran) 4 mg IV Q4H PRN PRN Reason: for nausea and vomiting Last Admin: 08/02/18 07:00 Dose: 4 mg Documented by: Sodium Chloride (Sodium Chloride Flush Syringe 10 Ml) 10 ml IV BID NIRMAL Last Admin: 08/01/18 22:49 Dose: 10 ml Documented by: Sodium Chloride (Sodium Chloride Flush Syringe 10 Ml) 10 ml IV PRN PRN PRN Reason: LINE FLUSH Review of Systems All systems: negative (10 pt ROS performed and negative except for that listed in HPI) Exam Vital Signs Temp Pulse Resp BP Pulse Ox 98.1 F 110 H 16 104/65 96 08/01/18 16:04 08/01/18 16:04 08/01/18 16:04 08/01/18 16:04 08/01/18 16:04 Narrative exam: Gen; AAOx3. NAD ENT: no scleral icterus or conjunctival pallor CV: S1, S2+ Resp; even and unlabored Abd: soft, ND, mild RLQ TTP. no r/r/g Ext: no c/c/e Results - Labs 08/02/18 07:07 08/02/18 07:07 Abnormal lab results 08/01/18 08/01/18 08/01/18 Range/Units 16:19 16:19 16:31 WBC 13.2 H (4.5-11.0) K/mm3 Hgb 14.6 H (10.1-14.3) gm/dl MCHC 35 H (30-34) % Plt Count (140-440) K/mm3 Seg Neuts % (Manual) 90.0 H (40.0-70.0) % Lymphocytes % (Manual) 4.0 L (13.4-35.0) % Seg Neutrophils # Man 11.9 H (1.8-7.7) K/mm3 Lymphocytes # (Manual) 0.5 L (1.2-5.4) K/mm3 Sodium 130 L (137-145) mmol/L Potassium 2.9 L* (3.6-5.0) mmol/L Chloride 85.9 L (98-107) mmol/L BUN 29 H (7-17) mg/dL Creatinine 1.5 H (0.7-1.2) mg/dL Glucose 103 H (65-100) mg/dL Lactic Acid (0.7-2.0) mmol/L Total Protein 8.4 H (6.3-8.2) g/dL Albumin 3.5 L (3.9-5) g/dL Lipase 10 L (13-60) units/L Urine WBC (Auto) 18.0 H (0.0-6.0) /HPF U Epithel Cells (Auto) 30.0 H (0-13.0) /HPF 08/01/18 08/01/18 08/02/18 Range/Units 20:29 21:31 07:07 WBC (4.5-11.0) K/mm3 Hgb (10.1-14.3) gm/dl MCHC 37 H (30-34) % Plt Count 120 L (140-440) K/mm3 Seg Neuts % (Manual) 94.0 H (40.0-70.0) % Lymphocytes % (Manual) 3.0 L (13.4-35.0) % Seg Neutrophils # Man 9.0 H (1.8-7.7) K/mm3 Lymphocytes # (Manual) 0.3 L (1.2-5.4) K/mm3 Sodium (137-145) mmol/L Potassium (3.6-5.0) mmol/L Chloride (98-107) mmol/L BUN (7-17) mg/dL Creatinine (0.7-1.2) mg/dL Glucose (65-100) mg/dL Lactic Acid 2.40 H* 2.10 H* (0.7-2.0) mmol/L Total Protein (6.3-8.2) g/dL Albumin (3.9-5) g/dL Lipase (13-60) units/L Urine WBC (Auto) (0.0-6.0) /HPF U Epithel Cells (Auto) (0-13.0) /HPF 08/02/18 Range/Units 07:07 WBC (4.5-11.0) K/mm3 Hgb (10.1-14.3) gm/dl MCHC (30-34) % Plt Count (140-440) K/mm3 Seg Neuts % (Manual) (40.0-70.0) % Lymphocytes % (Manual) (13.4-35.0) % Seg Neutrophils # Man (1.8-7.7) K/mm3 Lymphocytes # (Manual) (1.2-5.4) K/mm3 Sodium 135 L (137-145) mmol/L Potassium 3.0 L (3.6-5.0) mmol/L Chloride 96.7 L (98-107) mmol/L BUN (7-17) mg/dL Creatinine (0.7-1.2) mg/dL Glucose 102 H (65-100) mg/dL Lactic Acid (0.7-2.0) mmol/L Total Protein (6.3-8.2) g/dL Albumin (3.9-5) g/dL Lipase (13-60) units/L Urine WBC (Auto) (0.0-6.0) /HPF U Epithel Cells (Auto) (0-13.0) /HPF Diabetes panel 08/01/18 08/02/18 Range/Units 16:19 07:07 Sodium 130 L 135 L (137-145) mmol/L Potassium 2.9 L* 3.0 L (3.6-5.0) mmol/L Chloride 85.9 L 96.7 L (98-107) mmol/L Carbon Dioxide 25 25 (22-30) mmol/L BUN 29 H 15 (7-17) mg/dL Creatinine 1.5 H 0.8 (0.7-1.2) mg/dL Glucose 103 H 102 H (65-100) mg/dL Calcium 9.0 8.4 (8.4-10.2) mg/dL AST 21 (5-40) units/L ALT 10 (7-56) units/L Alkaline Phosphatase 113 (35-129) units/L Total Protein 8.4 H (6.3-8.2) g/dL Albumin 3.5 L (3.9-5) g/dL Calcium panel 08/01/18 08/02/18 Range/Units 16: 07:07 Calcium 9.0 8.4 (8.4-10.2) mg/dL Albumin 3.5 L (3.9-5) g/dL Pituitary panel 08/01/18 08/02/18 Range/Units 16:19 07:07 Sodium 130 L 135 L (137-145) mmol/L Potassium 2.9 L* 3.0 L (3.6-5.0) mmol/L Chloride 85.9 L 96.7 L (98-107) mmol/L Carbon Dioxide 25 25 (22-30) mmol/L BUN 29 H 15 (7-17) mg/dL Creatinine 1.5 H 0.8 (0.7-1.2) mg/dL Glucose 103 H 102 H (65-100) mg/dL Calcium 9.0 8.4 (8.4-10.2) mg/dL Adrenal panel 08/01/18 08/02/18 Range/Units 16:19 07:07 Sodium 130 L 135 L (137-145) mmol/L Potassium 2.9 L* 3.0 L (3.6-5.0) mmol/L Chloride 85.9 L 96.7 L (98-107) mmol/L Carbon Dioxide 25 25 (22-30) mmol/L BUN 29 H 15 (7-17) mg/dL Creatinine 1.5 H 0.8 (0.7-1.2) mg/dL Glucose 103 H 102 H (65-100) mg/dL Calcium 9.0 8.4 (8.4-10.2) mg/dL Total Bilirubin 0.60 (0.1-1.2) mg/dL AST 21 (5-40) units/L ALT 10 (7-56) units/L Alkaline Phosphatase 113 (35-129) units/L Total Protein 8.4 H (6.3-8.2) g/dL Albumin 3.5 L (3.9-5) g/dL - Imaging CT scan - abdomen: report reviewed, image reviewed CT scan - pelvis: report reviewed, image reviewed Assessment and Plan 23 yo F with 1. acute appendicitis 2. hypokalemia Plan: 1. NPO 2. IVF 3. IV anx 4. prn pain control 5. DVT ppx 6. OR today for appendectomy. I discussed all risks, benefits, and alternatives to surgery with patient and her family member at the bedside. All questions a nswered and consent obtained. 7. replace K Thank you, please call with questions
[2018-08-02] MEDS: NACL 0.9% 1000 ML 1,000 ML IV SCH (11:55)
[2018-08-02] MEDS ORDERED: VERSED ONE (13:13)
[2018-08-02] MEDS ORDERED: PEPCID IV ONE (13:13)
[2018-08-02] MEDS ORDERED: DILAUDID ONE (13:16)
[2018-08-02] MEDS ORDERED: DIPRIVAN 10 MG/ML IV ONE (13:16)
[2018-08-02] MEDS ORDERED: QUELICIN ONE (13:17)
[2018-08-02] MEDS ORDERED: XYLOCAINE MPF 2% ONE (13:18)
[2018-08-02] MEDS ORDERED: ZEMURON IV ONE (13:18)
[2018-08-02] MEDS ORDERED: XYLOCAINE 1% 20 mL ONE (13:53)
[2018-08-02] MEDS ORDERED: MARCAINE 0.5% INFILTRATI ONE ×2 (13:54→14:22)
[2018-08-02] MEDS ORDERED: KCL 40 MEQ in NACL 0.45% 500 ML IV SCH (14:00)
[2018-08-02] MEDS ORDERED: DECADRON ONE (14:13)
[2018-08-02] MEDS ORDERED: XYLOCAINE 1% 20 mL INFILTRATI ONE (14:22)
[2018-08-02] MEDS ORDERED: ROBINUL ONE (14:39)
[2018-08-02] MEDS ORDERED: BLOXIVERZ ONE (14:39)
--- NOTE | 2018-08-02 14:53 | Progress Note ---
Assessment and Plan Assessment and plan: (1) Sepsis Current Visit: Yes Status: Acute Qualifiers: Sepsis type: sepsis due to unspecified organism Qualified Code(s): A41.9 - Sepsis, unspecified organism Plan to address problem: Sepsis protocol: IV antibiotic therapy, monitor uop q shift, IVF resuscitation therapy, CBC, CMP, urinalysis, serial lactic acid level, chest x ray, (2) ARF (acute renal failure) with tubular necrosis Current Visit: Yes Status: Acute Plan to address problem: IVF resuscitation therapy, monitor uop q shift, repeat bmp to monitor for change in serum creatnine, avoid nephrotoxic agents. (3) Appendicitis Current Visit: Yes Status: Acute Qualifiers: Appendicitis type: acute appendicitis Acute appendicitis type: unspecified acute appendicitis type Qualified Code(s): K35.80 - Unspecified acute appendicitis Plan to address problem: IV antibiotic therapy, surgery consulted in ED. Appendectomy as per surgical team. (4) DVT prophylaxis Current Visit: Yes Status: Acute Plan to address problem: SCD to BLE while in bed History Interval history: Review of systems Constitutional: No fevers, no malaise, no joint pains CVS: No chest pain, no orthopnea, no dyspnea on exertion, no pedal edema GI: No abdominal pain, no diarrhea, no vomiting, no constipation Respiratory: No shortness of breath, no wheezing, no coughing Hospitalist Physical - Physical exam Narrative exam: General.: Appears well, no distress, nontoxic HEENT: Moist mucous membranes, extraocular muscles intact, no lymphadenopathy Neck: supple Cardiac: S1-S2 heard Lungs: clear to auscultation bilaterally Abdomen: soft , nontender, nondistended, bowel sounds positive Extremities: no edema clubbing or cyanosis Skin: no rash or lesions Neurologic: no gross focal deficits Psych: calm, and cooperative - Constitutional Vitals: Temp Pulse Resp BP Pulse Ox 100.4 F H 90 22 118/65 99 08/02/18 13:10 08/02/18 13:10 08/02/18 13:10 08/02/18 13:10 08/02/18 13:10 General appearance: Present: mild distress Results - Labs CBC & Chem 7: 08/02/18 07:07 08/03/18 04:30 Labs: Laboratory Last Values WBC 9.6 K/mm3 (4.5-11.0) 08/02/18 07:07 RBC 3.94 M/mm3 (3.65-5.03) 08/02/18 07:07 Hgb 12.4 gm/dl (10.1-14.3) 08/02/18 07:07 Hct 34.0 % (30.3-42.9) D 08/02/18 07:07 MCV 86 fl (79-97) 08/02/18 07:07 MCH 32 pg (28-32) 08/02/18 07:07 MCHC 37 % (30-34) H 08/02/18 07:07 RDW 13.3 % (13.2-15.2) 08/02/18 07:07 Plt Count 120 K/mm3 (140-440) L 08/02/18 07:07 Add Manual Diff Complete 08/02/18 07:07 Total Counted 100 08/02/18 07:07 Seg Neutrophils % Pesticide Use Medical Coordinator 08/02/18 07:07 Seg Neuts % (Manual) 94.0 % (40.0-70.0) H 08/02/18 07:07 Band Neutrophils % 0 % 08/02/18 07:07 Lymphocytes % (Manual) 3.0 % (13.4-35.0) L 08/02/18 07:07 Reactive Lymphs % (Man) 0 % 08/02/18 07:07 Monocytes % (Manual) 3.0 % (0.0-7.3) 08/02/18 07:07 Eosinophils % (Manual) 0 % (0.0-4.3) 08/02/18 07:07 Basophils % (Manual) 0 % (0.0-1.8) 08/02/18 07:07 Metamyelocytes % 0 % 08/02/18 07:07 Myelocytes % 0 % 08/02/18 07:07 Promyelocytes % 0 % 08/02/18 07:07 Blast Cells % 0 % 08/02/18 07:07 Nucleated RBC % Not Reportable 08/02/18 07:07 Seg Neutrophils # Man 9.0 K/mm3 (1.8-7.7) H 08/02/18 07:07 Band Neutrophils # 0.0 K/mm3 08/02/18 07:07 Lymphocytes # (Manual) 0.3 K/mm3 (1.2-5.4) L 08/02/18 07:07 Abs React Lymphs (Man) 0.0 K/mm3 08/02/18 07:07 Monocytes # (Manual) 0.3 K/mm3 (0.0-0.8) 08/02/18 07:07 Eosinophils # (Manual) 0.0 K/mm3 (0.0-0.4) 08/02/18 07:07 Basophils # (Manual) 0.0 K/mm3 (0.0-0.1) 08/02/18 07:07 Metamyelocytes # 0.0 K/mm3 08/02/18 07:07 Myelocytes # 0.0 K/mm3 08/02/18 07:07 Promyelocytes # 0.0 K/mm3 08/02/18 07:07 Blast Cells # 0.0 K/mm3 08/02/18 07:07 WBC Morphology Not Reportable 08/02/18 07:07 Hypersegmented Neuts Not Reportable 08/02/18 07:07 Hyposegmented Neuts Not Reportable 08/02/18 07:07 Hypogranular Neuts Not Reportable 08/02/18 07:07 Smudge Cells Not Reportable 08/02/18 07:07 Toxic Granulation Not Reportable 08/02/18 07:07 Toxic Vacuolation Not Reportable 08/02/18 07:07 Dohle Bodies Not Reportable 08/02/18 07:07 Pelger-Huet Anomaly Not Reportable 08/02/18 07:07 Cathy Rods Not Reportable 08/02/18 07:07 Platelet Estimate Consistent w auto 08/02/18 07:07 Clumped Platelets Not Reportable 08/02/18 07:07 Plt Clumps, EDTA Not Reportable 08/02/18 07:07 Large Platelets Not Reportable 08/02/18 07:07 Giant Platelets Not Reportable 08/02/18 07:07 Platelet Satelliting Not Reportable 08/02/18 07:07 Plt Morphology Comment Not Reportable 08/02/18 07:07 RBC Morphology Not Reportable 08/02/18 07:07 Dimorphic RBCs Not Reportable 08/02/18 07:07 Polychromasia Not Reportable 08/02/18 07:07 Hypochromasia Not Reportable 08/02/18 07:07 Poikilocytosis Not Reportable 08/02/18 07:07 Anisocytosis 1+ 08/02/18 07:07 Microcytosis Not Reportable 08/02/18 07:07 Macrocytosis Not Reportable 08/02/18 07:07 Spherocytes Not Reportable 08/02/18 07:07 Pappenheimer Bodies Not Reportable 08/02/18 07:07 Sickle Cells Not Reportable 08/02/18 07:07 Target Cells Not Reportable 08/02/18 07:07 Tear Drop Cells Not Reportable 08/02/18 07:07 Ovalocytes Rare 08/02/18 07:07 Helmet Cells Not Reportable 08/02/18 07:07 Stauffer-[place] Bodies Not Reportable 08/02/18 07:07 [place] Rings Not Reportable 08/02/18 07:07 Delfino Cells Not Reportable 08/02/18 07:07 Bite Cells Not Reportable 08/02/18 07:07 Crenated Cell Not Reportable 08/02/18 07:07 Elliptocytes Rare 08/02/18 07:07 Acanthocytes (Spur) Not Reportable 08/02/18 07:07 Rouleaux Not Reportable 08/02/18 07:07 Hemoglobin C Crystals Not Reportable 08/02/18 07:07 Schistocytes Not Reportable 08/02/18 07:07 Malaria parasites Not Reportable 08/02/18 07:07 Tanner Bodies Not Reportable 08/02/18 07:07 Hem Pathologist Commnt No 08/02/18 07:07 Sodium 135 mmol/L (137-145) L 08/02/18 07:07 Potassium 3.0 mmol/L (3.6-5.0) L 08/02/18 07:07 Chloride 96.7 mmol/L (98-107) L 08/02/18 07:07 Carbon Dioxide 25 mmol/L (22-30) 08/02/18 07:07 Anion Gap 16 mmol/L 08/02/18 07:07 BUN 15 mg/dL (7-17) 08/02/18 07:07 Creatinine 0.8 mg/dL (0.7-1.2) 08/02/18 07:07 Estimated GFR > 60 ml/min 08/02/18 07:07 BUN/Creatinine Ratio 19 % 08/02/18 07:07 Glucose 102 mg/dL (65-100) H 08/02/18 07:07 Lactic Acid 1.30 mmol/L (0.7-2.0) 08/02/18 01:00 Calcium 8.4 mg/dL (8.4-10.2) 08/02/18 07:07 Magnesium 2.00 mg/dL (1.7-2.3) 08/01/18 19:48 Total Bilirubin 0.60 mg/dL (0.1-1.2) 08/01/18 16:19 AST 21 units/L (5-40) 08/01/18 16:19 ALT 10 units/L (7-56) 08/01/18 16:19 Alkaline Phosphatase 113 units/L (35-129) 08/01/18 16:19 Total Protein 8.4 g/dL (6.3-8.2) H 08/01/18 16:19 Albumin 3.5 g/dL (3.9-5) L 08/01/18 16:19 Albumin/Globulin Ratio 0.7 % 08/01/18 16:19 Lipase 10 units/L (13-60) L 08/01/18 16:19 Urine Color Red (Yellow) 08/01/18 16:31 Urine Turbidity Slightly-cloudy (Clear) 08/01/18 16:31 Urine pH 5.0 (5.0-7.0) 08/01/18 16:31 Ur Specific [place] 1.025 (1.003-1.030) 08/01/18 16:31 Urine Protein >500 mg/dL (Negative) 08/01/18 16:31 Urine Glucose (UA) 50 mg/dL (Negative) 08/01/18 16:31 Urine Ketones Neg mg/dL (Negative) 08/01/18 16:31 Urine Blood Neg (Negative) 08/01/18 16:31 Urine Nitrite Pos (Negative) 08/01/18 16:31 Urine Bilirubin Neg (Negative) 08/01/18 16:31 Urine Urobilinogen 4.0 mg/dL (<2.0) 08/01/18 16:31 Ur Leukocyte Esterase Neg (Negative) 08/01/18 16:31 Urine WBC (Auto) 18.0 /HPF (0.0-6.0) H 08/01/18 16:31 Urine RBC (Auto) 7.0 /HPF (0.0-6.0) 08/01/18 16:31 U Epithel Cells (Auto) 30.0 /HPF (0-13.0) H 08/01/18 16:31 Urine Bacteria (Auto) 1+ /HPF (Negative) 08/01/18 16:31 Urine WBC Clumps 2+ /HPF 08/01/18 16:31 Urine Mucus 1+ /HPF 08/01/18 16:31 Urine Yeast (Budding) 1+ /HPF 08/01/18 16:31 Urine Sperm 1+ /HPF (CHIEF OF PEDIATRIC UROLOGY) 08/01/18 16:31 Urine HCG, Qual Negative (Negative) 08/01/18 16:31
--- NOTE | 2018-08-02 15:00 | Post Operative Note ---
Date of procedure: 08/02/18 Pre-op diagnosis: acute appendicitis Post-op diagnosis: other (acute) Findings: suppurative appendicitis, no perforation Procedure: laparoscopic appendectomy Anesthesia: GETA, local Surgeon: JAY STEVENS Estimated blood loss: minimal Pathology: list (appendix) Specimen disposition: to lab Condition: stable Disposition: PACU
--- NOTE | 2018-08-02 15:10 | Anesthesia Consultation ---
Anesthesia Consult and Med Hx - Airway Anesthetic Teeth Evaluation: Good ROM Head & Neck: Adequate Mental/Hyoid Distance: Adequate Mallampati Class: Class II Intubation Access Assessment: Good - Pulmonary Exam CTA: Yes - Cardiac Exam Cardiac Exam: RRR - Pre-Operative Health Status ASA Pre-Surgery Classification: ASA1 Proposed Anesthetic Plan: General - Pulmonary Hx Asthma: No COPD: No Hx Pneumonia: No - Endocrine Hx End Stage Renal Disease: No - Additional Comments Anesthesia Medical History Comments: mild developmental delay but otherwise healthy. n/v in last 24 hours needs RSI
[2018-08-02] MEDS ORDERED: ZOFRAN IV PRN (15:11)
[2018-08-02] MEDS ORDERED: SUBLIMAZE IV PRN (15:11)
[2018-08-02] MEDS ORDERED: DILAUDID IV PRN (15:11)
--- NOTE | 2018-08-02 15:11 | Anesthesia Day of Surgery ---
Anesthesia Day of Surgery - Day of Surgery Patient Examined: Yes Patient H&P Reviewed: Yes Patient is NPO: Yes Beta Blockers: No Cardiac Clearance: No Pulmonary Clearance: No Quique's Test: N/A
--- NOTE | 2018-08-02 17:11 | Post Anesthesia Evaluation ---
- Post Anesthesia Evaluation Patient Participated: Yes Airway Patent: Yes Stable Respiratory Function: Yes Nausea/Vomiting: No Temp > 96.8F: Yes Pain Manageable: Yes Adequeate Hydration: Yes Anesthesia Complications: No
[2018-08-02] MEDS: LEVAQUIN 750MG/150ML 750 MG/150 ML BAG IV SCH (21:06)
[2018-08-02] MEDS: SODIUM CHLORIDE FLUSH SYRINGE 10 ML IV SCH (21:32)
[2018-08-03] MEDS: PERCOCET 5/325 PO PRN ×2 (01:14→14:41)
[2018-08-03] MEDS: SODIUM CHLORIDE FLUSH SYRINGE 10 ML IV SCH ×2 (01:17→09:59)
[2018-08-03] MEDS: FLAGYL 500 MG/100 ML 500 MG/100 ML BAG IV SCH ×3 (01:18→13:19)
[2018-08-03] MEDS: NACL 0.9% 1000 ML 1,000 ML IV SCH ×2 (01:22→09:58)
[2018-08-03] MEDS: KCL 10MEQ/100ML 10 MEQ/100 ML BAG IV SCH ×2 (01:26→01:27)
[2018-08-03] MEDS: MORPHINE IV PRN (04:59)
[2018-08-03] MEDS: ZOFRAN IV PRN (04:59)
[2018-08-03 05:21] LABS: BUN/Creatinine Ratio 21; Blood Urea Nitrogen 15 mg/dL (7-17); Calcium 8.2 mg/dL (8.4-10.2); Hemolysis Index 3
[2018-08-03] MEDS: LEVAQUIN 750MG/150ML 750 MG/150 ML BAG IV SCH (09:58)
[2018-08-03 12:06] VITALS: BP 137/81
--- NOTE | 2018-08-03 12:17 | Progress Note ---
Assessment and Plan 23 yo F s/p laparoscopic appendectomy, POD 1 1. adv to reg diet 2. IVF 3. c/w abx - will dc on 7 days of levaquin, flagyl 4. PRN PO pain control 5. IS 6. DVT ppx 7. ok to dc home from surgery standpoint. I explained to the patient and boy friend that she may have slowed return of bowel function due to the infection and inflammation caused by the appendicitis. Printed dc instructions left on chart. Thank you, please call with questions. D/W Dr. Pratt Subjective Date of service: 08/03/18 Narrative: Pt seen and examined. No complaints. No f/c. Mild nausea overnight but tolerating clear liquids. Feels hungry. No cp, sob. Objective Vital Signs - 12hr 08/03/18 08/03/18 08/03/18 01:11 01:12 04:32 Temperature 97.7 F 98.2 F Pulse Rate 61 63 62 Respiratory 16 16 Rate Blood Pressure 99/62 97/54 O2 Sat by Pulse 98 98 97 Oximetry 08/03/18 08/03/18 08/03/18 04:33 07:35 11:43 Temperature 97.7 F 97.4 F L Pulse Rate 64 56 L 65 Respiratory 18 18 Rate Blood Pressure 100/68 137/81 O2 Sat by Pulse 97 97 98 Oximetry - General physical appearance Narrative Exam: Gen: AAOx3. NAD CV: s1, S2+ Resp: even and unlabored Abd: soft, NT, mildly distended. incisions c/d/i Ext: no c/c/e - Labs 08/02/18 07:07 08/03/18 04:30 Diabetes panel 08/03/18 Range/Units 04:30 Sodium 136 L (137-145) mmol/L Potassium 4.0 D (3.6-5.0) mmol/L Chloride 101.8 (98-107) mmol/L Carbon Dioxide 24 (22-30) mmol/L BUN 15 (7-17) mg/dL Creatinine 0.7 (0.7-1.2) mg/dL Glucose 117 H (65-100) mg/dL Calcium 8.2 L (8.4-10.2) mg/dL Calcium panel 08/03/18 Range/Units 04:30 Calcium 8.2 L (8.4-10.2) mg/dL Pituitary panel 08/03/18 Range/Units 04:30 Sodium 136 L (137-145) mmol/L Potassium 4.0 D (3.6-5.0) mmol/L Chloride 101.8 (98-107) mmol/L Carbon Dioxide 24 (22-30) mmol/L BUN 15 (7-17) mg/dL Creatinine 0.7 (0.7-1.2) mg/dL Glucose 117 H (65-100) mg/dL Calcium 8.2 L (8.4-10.2) mg/dL Adrenal panel 08/03/18 Range/Units 04:30 Sodium 136 L (137-145) mmol/L Potassium 4.0 D (3.6-5.0) mmol/L Chloride 101.8 (98-107) mmol/L Carbon Dioxide 24 (22-30) mmol/L BUN 15 (7-17) mg/dL Creatinine 0.7 (0.7-1.2) mg/dL Glucose 117 H (65-100) mg/dL Calcium 8.2 L (8.4-10.2) mg/dL
--- NOTE | 2018-08-03 12:30 | Discharge Summary ---
Providers - Providers Date of Admission: 08/01/18 20:12 Attending physician: MONIK COHEN MD 08/01/18 20:49 Consult to Physician [CONS] Urgent Comment: Consulting Provider: JAY STEVENS Physician Instructions: Reason For Exam: appendicitis Primary care physician: ALEXANDRIA PAUL Hospitalization Condition: Stable Hospital course: \ 23 year old woman who presented with acute appendicitis. She initially presented with abdominal pain, She was diagnosed with acute appendicitis, she went on to have appendectomy. Received antibiotics during a hospital stay. She's being discharged on a course of antibiotics. Show giving post-surgical instructions by her surgeon prior to discharge. Diagnosis Sepsis acute appendicitis Disposition: TO HOME OR SELFCARE Time spent for discharge: 33 mins Core Measure Documentation - Palliative Care Palliative Care/ Comfort Measures: Not Applicable - Core Measures Any of the following diagnoses?: none Exam - Constitutional Vitals: Temp Pulse Resp BP Pulse Ox 97.4 F L 65 18 137/81 98 08/03/18 11:43 08/03/18 11:43 08/03/18 11:43 08/03/18 11:43 08/03/18 11:43 General appearance: Present: no acute distress, well-nourished - EENT Eyes: Present: PERRL ENT: hearing intact, clear oral mucosa - Neck Neck: Present: supple, normal ROM - Respiratory Respiratory effort: normal Respiratory: bilateral: CTA - Cardiovascular Heart Sounds: Present: S1 & S2. Absent: rub, click - Extremities Extremities: pulses symmetrical, No edema Peripheral Pulses: within normal limits - Abdominal General gastrointestinal: Present: soft, non-tender, non-distended, normal bowel sounds Female genitourinary: Present: normal - Integumentary Integumentary: Present: clear, warm, dry - Musculoskeletal Musculoskeletal: gait normal, strength equal bilaterally - Psychiatric Psychiatric: appropriate mood/affect, intact judgment & insight - Neurologic Neurologic: CNII-XII intact, moves all extremities Plan Follow up with: ALEXANDRIA PAUL MD [Primary Care Provider] - 3-5 Days JAY STEVENS DO [Staff Physician] - 14 Days Prescriptions: HYDROcodone/APAP 5-325 [[place] 5/325] 1 each PO Q6HR PRN #20 tablet PRN Reason: Pain levoFLOXacin [Levaquin TAB] 500 mg PO QDAY #7 tablet metroNIDAZOLE [Flagyl] 500 mg PO Q8HR #21 tablet Ondansetron [Zofran Odt] 4 mg PO Q8HR PRN #30 tab.rapdis PRN Reason: Nausea
--- NOTE | 2018-08-03 15:29 | Operative Report ---
PREOPERATIVE DIAGNOSIS: Acute appendicitis. POSTOPERATIVE DIAGNOSIS: Acute appendicitis. FINDINGS: Suppurative appendicitis, no perforation. PROCEDURE: Laparoscopic appendectomy. ANESTHESIA: General endotracheal anesthesia, local. SURGEON: Rox Manuel DO ESTIMATED BLOOD LOSS: Minimal. PATHOLOGY: Appendix. SPECIMEN DISPOSITION: To lab. CONDITION: Stable. THE PATIENT DISPOSITION: PACU. HISTORY OF PRESENT ILLNESS AND INDICATION: The patient is a 23-year-old female presented to the Emergency Room with complaints of right lower quadrant pain x 3 days. The patient also complained of nausea and vomiting. Labs showed a leukocytosis and imaging studies were concerning for acute appendicitis. The examination of the patient was consistent with these findings and therefore appendectomy was recommended. I discussed all risks, benefits and alternatives to surgery with the patient as well as her boyfriend at the bedside. All questions were answered. Consent was obtained. PROCEDURE IN DETAIL: The patient was identified in the preoperative area, taken to the operating room and placed on the operating table in supine position. After anesthesia was induced, a Aguila catheter was sterilely placed by the circulating nurse. The left arm was then tucked and all bony prominences padded. The abdomen was prepped and draped in the usual sterile fashion and a timeout performed. Local anesthetic was infiltrated into all skin incision sites prior to incision. A 5 mm supraumbilical incision was made through which Veress needle was inserted. The Veress needle position was confirmed using the saline drop test. The abdomen was insufflated to 15 mmHg. Once insufflated, the Veress needle was removed and a 5 mm Optiview trocar was placed through this incision. The abdomen was inspected. There was no underlying injury to any of the abdominal structures. The patient was tilted to the left and placed in Trendelenburg position. There were inflammatory changes in the right lower quadrant and pelvis, which were evidenced by adhesions from the omentum and small bowel to the anterior and lateral abdominal wall in the pelvis in the right lower quadrant. There was some simple inflammatory fluid seen as well. An additional 12 mm left lateral and 5 mm suprapubic trocars were placed under direct visualization. The adhesions were taken down bluntly with great care not to injure any of the underlying structures. The cecum was identified and followed until the base of the appendix was seen. The base of the appendix was very inflamed and the mid and distal aspect of the appendix was gangrenous with evidence of acute inflammation. The appendix was carefully grasped and attempted to be retracted; however, the mid and distal body of the appendix were adhesed to the right lower quadrant. Therefore, at this point, it was decided to create a window between the mesoappendix and the base of the appendix using the Harmonic scalpel. Once the window was adequately created a 45 mm [place] flex white load stapler was used to transect the appendix at the base. The staple line was examined and there was no bleeding or bowel content leakage. Then, the base of the appendix was grasped and the mesoappendix was ligated using the Harmonic scalpel. Adhesions from the appendix to the lateral abdominal wall were also ligated using the Harmonic scalpel. Using blunt dissection, the mid body and distal aspect of the appendix were freed from surrounding inflammatory adhesions and was brought into view. Once again this area appeared acutely inflamed and dilated. The mid body of the appendix was grasped. There was purulent drainage from the wall of the appendix. This was minimal and there was negligent spillage. The remainder of the mesoappendix was ligated using the Harmonic scalpel and the appendix was placed into an EndoCatch bag and placed in the left lower quadrant. The ligated mesentery as well as the staple line was once again examined and there was no bleeding. The right lower quadrant was irrigated with a small amount of saline until all of the irrigant returned clear and the inflammatory fluid was evacuated. The bowel was inspected and there was reactive inflammatory changes seen of the small bowel in the pelvis as well as the omentum. No significant evidence of bowel dilatation was seen. The patient was then placed into neutral position. The appendix removed via the 12 mm port. The 12 mm port fascia was closed with interrupted 0 Vicryl sutures using the Roman-Camilla device. The remaining 2 ports were then removed under direct visualization and the abdomen desufflated. The skin incisions once again infiltrated with local anesthetic and the skin closed with 4-0 Monocryl subcuticular stitches and skin glue. At the end of the case, all sponge, instrument, sharp counts were correct x 2. The Aguila catheter was removed and the patient was awoken from anesthesia, extubated, and taken to PACU in stable condition. JOB# [id number] NK/NTS
== END 2018-08-03 17:05 | disposition home or self-care (01) | DRG 853 ==
LOC: ED 15:57 → 3B-SURG 20:12
PROVIDERS: ADMIT Internal Medicine; ATTEND Internal Medicine
PROC: 0DTJ4ZZ Resection of Appendix, Percutaneous Endoscopic Approach (ICD-10-PCS; principal; 2018-08-02)
DX: A41.9 Sepsis, unspecified organism (principal); N17.0 Acute kidney failure with tubular necrosis; K35.80 Unspecified acute appendicitis; E86.0 Dehydration; F31.9 Bipolar disorder, unspecified; E87.6 Hypokalemia; N30.00 Acute cystitis without hematuria; E87.8 Other disorders of electrolyte and fluid balance, not elsewhere classified; Z79.899 Other long term (current) drug therapy
CPT/HCPCS: 36415; 74177; 80048; 80053; 81001; 81025; 82140; 83690; 83735; 85007; 85025; 88304; 96372; 99283; G0378; J0330; J0696; J1100; J1170; J1200; J1956; J2250; J2270; J2405; J2543; J2704; J2710; J3480; J7030; Q9967